=== PATIENT | female | born 1985 | race African-American/Black ===

== ENCOUNTER 2022-12-24 19:04 | Emergency (ER) | payer BC, MEDICAID ==
[~2022-12-24] VITALS: Ht 162.6 cm; Wt 85.7 kg
[~2022-12-24 19:04] MED LIST: CHOL200074 MT; FERR325T6 MT; LABE200T9 MT; OMEG-119 MT; PREN1TAB78 MT
[2022-12-24 19:44] LABS: BASOPHILS % 0.6 % (0.0-2.0); EOSINOPHILS % 0.5 % (0.0-5.0); HEMATOCRIT. 37.1 % (36.0-48.0); HEMOGLOBIN. 12.2 g/dL (12.0-16.0); LYMPHOCYTES % 16.2 % (20.0-50.0); MEAN CORPUSCULAR HEMOGLOBIN 26.3 pg (28.0-32.0); MEAN CORPUSCULAR VOLUME 79.9 fL (81.0-99.0); MEAN PLATELET VOLUME 7.7 fl (7.4-10.4); MONOCYTES % 9.5 % (2.0-8.0); NEUTROPHILS % 73.2 % (40.0-76.0); PLATELET 349 x1000/uL (130-400); RED BLOOD CELL COUNT 4.64 mill/uL (4.2-5.4); RED CELL DISTRIBUTION WIDTH 15.7 % (11.6-14.6)
[2022-12-24 19:47] LABS: CHLORIDE 99 mEq/L (98-107)
[2022-12-25 01:30] LABS: HCG SCREEN NEGATIVE
[2022-12-25] MEDS ORDERED: SODIUM CHLORIDE 0.9% 1,000 ML IV ONE (03:00)
[2022-12-25] MEDS ORDERED: MORPHINE SULFATE 2 MG/ML CPJ (NOT FOR IM USE) IV ONE (03:15)
[2022-12-25] MEDS ORDERED: IOHEXOL-350 100 ML BOTTLE ONE (05:48)
[2022-12-25 06:24] LABS: CLARITY URINE CLOUDY (CLEAR); COLOR URINE YELLOW (YELLOW); KETONES URINE NEGATIVE (NEGATIVE); LEUKOCYTE ESTERASE URINE 2+ (NEGATIVE); NITRITE URINE POSITIVE (NEGATIVE); OCCULT BLOOD URINE 1+ (NEGATIVE); PH URINE 5.5 (4.5-8.0); PROTEIN URINE 1+ (NEGATIVE)
[2022-12-25] MEDS ORDERED: CEFTRIAXONE 1GM PREMIX 50 ML IV NR (06:45)
[2022-12-25] MEDS ORDERED: PHEN-910 PO (07:15)
[2022-12-25] MEDS ORDERED: CEPH500C2 MT (07:15)
[2022-12-25] MEDS ORDERED: ACET-2708 PO (07:15)
[2022-12-25 08:50] VITALS: BP 126/83
== END 2022-12-25 09:02 | disposition home or self-care (01) ==
LOC: ER 19:04
DX: N12 Tubulo-interstitial nephritis, not specified as acute or chronic (principal); R06.00 Dyspnea, unspecified; Z79.899 Other long term (current) drug therapy
CPT/HCPCS: 36415; 71045; 71275; 80053; 81003; 84484; 84703; 85025; 85379; 87086; 93005; 96361; 96365; 96375; 99285; J0696; J2270; Q9967; Z7610